=== PATIENT | male | born 1975 | race Caucasian/White ===

== ENCOUNTER 2019-10-09 20:37 | Emergency (ER) | payer BC ==
[2019-10-09 20:43] VITALS: RESP 18
[2019-10-09 20:54] LABS: Glucose,Whole Blood 87 mg/dL (75-99)
[2019-10-09] MEDS ORDERED: SODIUM CHLORIDE 0.9% 1,000 ML IV STA (21:03)
[2019-10-09] MEDS ORDERED: METOCLOPRAMIDE 5 MG/ML 2 ML VIAL IVP STA (21:04)
[2019-10-09] MEDS ORDERED: diphenhydrAMINE 50 MG/ML 1 ML VIAL IVP STA (21:04)
--- NOTE | 2019-10-09 21:07 | ED ---
General Adult HPI - General Chief complaint: Head Injury Stated complaint: Headache Time Seen by Provider: 10/09/19 20:48 Source: patient, RN notes reviewed Mode of arrival: ambulatory Limitations: no limitations - History of Present Illness Initial comments: 44-year-old male with a past medical history of hyperlipidemia, hypertension presents to the emergency department for a chief complaint of blurry vision. Patient states he was at work around 10:30 this morning when he started to have blurry vision. States this lasted for about 2 hours. He left work and it resolved. He then went to his friend's house to watch football and this evening had another episode of blurry vision around 5 PM. States it lasted for 1 hour. And resolved. When he was on the way to the hospital for evaluation of this about 30 minutes ago He started to get a severe headache. States this is about a 6 out of 10. States he has nausea associated with this. No history of migraines. Denies any difficulty speaking. Denies any weakness of the arms or legs.Patient has no other complaints at this time including shortness of breath, chest pain, abdominal pain, or visual changes. - Related Data Allergies Allergy/AdvReac Type Severity Reaction Status Date / Time No Known Allergies Allergy Verified 10/09/19 20:43 Review of Systems ROS Statement: Those systems with pertinent positive or pertinent negative responses have been documented in the HPI. ROS Other: All systems not noted in ROS Statement are negative. Past Medical History Past Medical History: Hyperlipidemia, Hypertension History of Any Multi-Drug Resistant Organisms: None Reported Past Surgical History: No Surgical Hx Reported Past Psychological History: No Psychological Hx Reported Smoking Status: Never smoker Past Alcohol Use History: None Reported Past Drug Use History: None Reported General Exam Limitations: no limitations General appearance: alert, in no apparent distress Head exam: Present: atraumatic, normocephalic, normal inspection Eye exam: Present: normal appearance, PERRL, EOMI. Absent: scleral icterus, conjunctival injection, periorbital swelling ENT exam: Present: normal exam, mucous membranes moist Neck exam: Present: normal inspection, full ROM. Absent: tenderness, meningismus, lymphadenopathy Respiratory exam: Present: normal lung sounds bilaterally. Absent: respiratory distress, wheezes, rales, rhonchi, stridor Cardiovascular Exam: Present: regular rate, normal rhythm, normal heart sounds. Absent: systolic murmur, diastolic murmur, rubs, gallop, clicks Neurological exam: Present: alert, oriented X3, CN II-XII intact, normal gait, other (gcs 15) Expanded Patient oriented to: Present: person, place, time Speech: Present: fluid speech Cranial nerves: EOM's Intact: Normal, Tongue Deviation: Normal, Nystagmus: Normal, Facial Sensation: Normal Cerebellar function: Finger to Nose: Normal Upper motor neuron: Pronator Drift: Normal Sensory exam: Upper Extremity Light Touch: Normal, Upper Extremity Pin Prick: Normal, Lower Extremity Light Touch: Normal, Lower Extremity Pin Prick: Normal Motor strength exam: RUE: 5, LUE: 5, RLE: 5, LLE: 5 Eye Response: (4) open spontaneously Motor Response: (6) obeys commands Verbal Response: (5) oriented Jay Total: 15 Course Vital Signs 10/09/19 10/09/19 20:39 22:58 Temperature 98.0 F Pulse Rate 70 75 Respiratory 18 18 Rate Blood Pressure 160/93 131/77 O2 Sat by Pulse 99 98 Oximetry Medical Decision Making - Medical Decision Making Patient presents with intermittent blurry vision resolved upon arrival. Headache started tonight prior to arrival. CBC CMP unremarkable. CRP is negative. CT brain performed which showed a negative head CT. CT angiography showed a negative angiogram of the neck and of the brain. There is normal arterial flow. Patient was given migraine cocktail and had significant improvement in pain. He did not have any blurry vision while in the emergency department. He has no focal neurologic deficits. Blurry vision could be secon sydni to migraine headache or eye fatigue. Pt will be discharged home to follow up with primary care. Recommend he follows up with optometry as well. - Lab Data Result diagrams: 10/09/19 21:05 10/09/19 21:05 Lab Results 10/09/19 10/09/19 10/09/19 Range/Units 20:52 21:05 21:05 WBC 9.9 (3.8-10.6) k/uL RBC 5.29 (4.30-5.90) m/uL Hgb 16.0 (13.0-17.5) gm/dL Hct 47.4 (39.0-53.0) % MCV 89.5 (80.0-100.0) fL MCH 30.2 (25.0-35.0) pg MCHC 33.8 (31.0-37.0) g/dL RDW 12.7 (11.5-15.5) % Plt Count 322 (150-450) k/uL Neutrophils % 59 % Lymphocytes % 28 % Monocytes % 8 % Eosinophils % 2 % Basophils % 0 % Neutrophils # 5.9 (1.3-7.7) k/uL Lymphocytes # 2.8 (1.0-4.8) k/uL Monocytes # 0.8 (0-1.0) k/uL Eosinophils # 0.2 (0-0.7) k/uL Basophils # 0.0 (0-0.2) k/uL Sodium 138 (137-145) mmol/L Potassium 3.9 (3.5-5.1) mmol/L Chloride 106 (98-107) mmol/L Carbon Dioxide 26 (22-30) mmol/L Anion Gap 6 mmol/L BUN 14 (9-20) mg/dL Creatinine 0.89 (0.66-1.25) mg/dL Est GFR (CKD-EPI)AfAm >90 (>60 ml/min/1.73 sqM) Est GFR (CKD-EPI)NonAf >90 (>60 ml/min/1.73 sqM) Glucose 97 (74-99) mg/dL POC Glucose (mg/dL) 87 (75-99) mg/dL POC Glu [employer] Attendant ID Tari Kennedy Calcium 9.5 (8.4-10.2) mg/dL Total Bilirubin 0.8 (0.2-1.3) mg/dL AST 39 (17-59) U/L ALT 64 H (4-49) U/L Alkaline Phosphatase 73 (38-126) U/L C-Reactive Protein (<10.0) mg/L Total Protein 6.9 (6.3-8.2) g/dL Albumin 4.2 (3.5-5.0) g/dL 10/09/19 Range/Units 21:30 WBC (3.8-10.6) k/uL RBC (4.30-5.90) m/uL Hgb (13.0-17.5) gm/dL Hct (39.0-53.0) % MCV (80.0-100.0) fL MCH (25.0-35.0) pg MCHC (31.0-37.0) g/dL RDW (11.5-15.5) % Plt Count (150-450) k/uL Neutrophils % % Lymphocytes % % Monocytes % % Eosinophils % % Basophils % % Neutrophils # (1.3-7.7) k/uL Lymphocytes # (1.0-4.8) k/uL Monocytes # (0-1.0) k/uL Eosinophils # (0-0.7) k/uL Basophils # (0-0.2) k/uL Sodium (137-145) mmol/L Potassium (3.5-5.1) mmol/L Chloride (98-107) mmol/L Carbon Dioxide (22-30) mmol/L Anion Gap mmol/L BUN (9-20) mg/dL Creatinine (0.66-1.25) mg/dL Est GFR (CKD-EPI)AfAm (>60 ml/min/1.73 sqM) Est GFR (CKD-EPI)NonAf (>60 ml/min/1.73 sqM) Glucose (74-99) mg/dL POC Glucose (mg/dL) (75-99) mg/dL POC Glu Car Wash Attendant ID Calcium (8.4-10.2) mg/dL Total Bilirubin (0.2-1.3) mg/dL AST (17-59) U/L ALT (4-49) U/L Alkaline Phosphatase (38-126) U/L C-Reactive Protein <5.0 (<10.0) mg/L Total Protein (6.3-8.2) g/dL Albumin (3.5-5.0) g/dL Disposition Clinical Impression: Headache Disposition: HOME SELF-CARE Condition: Fair Instructions (If sedation given, give patient instructions): Acute Headache (ED) Additional Instructions: Please follow up with primary care and optometry on Friday. If you have any worsening symptoms return to the emergency department. Is patient prescribed a controlled substance at d/c from ED?: No Referrals: Pablo Dawn DO [Primary Care Provider] - 1-2 days Time of Disposition: 00:05
[2019-10-09 21:14] LABS: Basophils % (A) 0 %; Eosinophils # (A) 0.2 k/uL (0-0.7); Eosinophils % (A) 2 %; HCT 47.4 % (39.0-53.0); Lymphocytes # (A) 2.8 k/uL (1.0-4.8); Lymphocytes % (A) 28 %; MCH 30.2 pg (25.0-35.0); MCHC 33.8 g/dL (31.0-37.0); MCV 89.5 fL (80.0-100.0); Mean Platelet Volume 7.5; Monocytes # (A) 0.8 k/uL (0-1.0); Monocytes % (A) 8 %; Neutrophils # (A) 5.9 k/uL (1.3-7.7); Neutrophils % (A) 59 %; Platelet Count 322 k/uL (150-450); RBC 5.29 m/uL (4.30-5.90); RDW 12.7 % (11.5-15.5); WBC 9.9 k/uL (3.8-10.6)
[2019-10-09 21:25] LABS: ALT 64 U/L (4-49); AST 39 U/L (17-59); African American GFR (CKD) >90 (>60 ml/min/1.73 sqM); Albumin 4.2 g/dL (3.5-5.0); Alkaline Phosphatase 73 U/L (38-126); Anion Gap 6 mmol/L; Blood Urea Nitrogen 14 mg/dL (9-20); Calcium 9.5 mg/dL (8.4-10.2); Carbon Dioxide 26 mmol/L (22-30); Chloride 106 mmol/L (98-107); Glucose 97 mg/dL (74-99); Non-African American GFR(CKD) >90 (>60 ml/min/1.73 sqM); Potassium 3.9 mmol/L (3.5-5.1); Sodium 138 mmol/L (137-145); Total Bilirubin 0.8 mg/dL (0.2-1.3); Total Protein 6.9 g/dL (6.3-8.2)
--- NOTE | 2019-10-09 21:31 | CT ---
EXAMINATION TYPE: CT brain wo con DATE OF EXAM: 10/09/2019 COMPARISON: None HISTORY: MELENDEZ CT DLP: 1129.4 mGycm Automated exposure control for dose reduction was used. Ventricles and sulci appear normal. There is no mass effect nor midline shift. There is no sign of in tracranial hemorrhage. Calvarium is intact. There is no evidence of cerebral edema. IMPRESSION: Negative head CT scan.
[2019-10-09] MEDS ORDERED: ONDANSETRON 4 MG/2 ML VIAL IVP STA (22:38)
[2019-10-09] MEDS ORDERED: KETOROLAC 30 MG/ML 1 ML VIAL IVP STA (22:39)
[2019-10-09] MEDS ORDERED: MECLIZINE 12.5 MG TAB PO STA (22:39)
--- NOTE | 2019-10-09 22:58 | CT ---
EXAMINATION TYPE: CT angio head neck DATE OF EXAM: 10/09/2019 COMPARISON: None HISTORY: headache and changes in vision CT DLP: 758.2 mGycm Automated exposure control for dose reduction was used. CONTRAST: Performed with IV Contrast, patient injected with 65cc mL of Isovue 370. There are 3-D post processed images. There is normal branching pattern of the great vessels on the aortic arch. There is bilateral arteria l flow in the subclavian arteries. There is arterial flow in the common internal and external carotid arteries bilaterally. There is arterial flow in both vertebral arteries. There is no evidence of car otid or vertebral artery aneurysm or dissection. I see no evidence of stenosis. Carotid artery bifurc ations appear widely patent. There is arterial flow in the anterior middle and posterior cerebral arteries. There is arterial flow in the vertebrobasilar artery system. There is normal contrast opacification of the venous sinuses. I see no evidence of intracranial arterial stenosis. There is no mass effect. There is no sign of ane urysm or neovascularity. IMPRESSION: Negative CT angiogram of the neck. Negative CT angiogram of the brain.
[2019-10-10 00:53] VITALS: BP 114/65; PULSE 61; TEMP 98
== END 2019-10-10 00:54 | disposition home or self-care (01) ==
LOC: EC 20:37
DX: R51 Headache (principal); H53.8 Other visual disturbances; R11.0 Nausea
CPT/HCPCS: 36415; 80053; 85025; 86140; 70496; 70450; 70498; 99284; 96374; 96375 ×3; 96361 ×3; J1200; J2765; J2405; J1885; Q9967